=== PATIENT | female | born 1990 | race Caucasian/White ===

== ENCOUNTER 2017-05-14 23:52 | Emergency (ER) | payer SELFPAY ==
[~2017-05-14] VITALS: Ht 149.9 cm; Wt 61.1 kg
[2017-05-15 00:02] VITALS: BP 126/69; PULSE 115; RESP 18; TEMP 99.3; O2SAT 99
[2017-05-15 01:10] VITALS: O2SAT 97
--- NOTE | 2017-05-15 01:41 | PD ---
HPI Chief Complaint: GI Complaint Time Seen by Provider: 01:36 Travel History International Travel<30 days: No Contact w/Intl Traveler<30days: No Traveled to known affect area: No History of Present Illness HPI 26-year-old female presents to the emergency department for generalized weakness and feeling ill 1 week with fever 1 day with nausea vomiting urinary frequency suprapubic pressure and left flank pain. Patient has had previous appendectomy. Last menstrual period was 04/24/17 and normal for her and denies . Patient had no respiratory illness symptoms no sore throat no earache no cough no congestion no chest pain. Patient rates discomfort as moderate to severe. Patient had poor oral intake. Patient had mild constipation. No report of vaginal discharge or vaginal bleeding. PFSH Past Medical History Narrative Medical Appendectomy; tobacco use; nursing notes reviewed Medical History: Denies Significant Hx Tetanus Vaccination: > 5 Years Influenza Vaccination: No ?: Unknown LMP: 04/24/17 Past Surgical History Appendectomy: Yes Social History Alcohol Use: No Tobacco Use: Yes (one pack a day ) Substance Use: No (denies) Allergies-Medications (Allergen,Severity, Reaction): Coded Allergies: No Known Allergies (Unverified , 05/15/17) Reported Meds & Prescriptions Reported Meds & Active Scripts Active Phenergan (Promethazine HCl) 25 Mg Tablet 25 Mg PO Q6H PRN Cipro (Ciprofloxacin HCl) 500 Mg Tab 500 Mg PO BID 10 Days Review of Systems Except as stated in HPI: all other systems reviewed are Neg General / Constitutional: Positive: Fever, Chills HENT: Positive: Congestion Cardiovascular: No: Chest Pain or Discomfort Respiratory: No: Shortness of Breath Gastrointestinal: Positive: Nausea, Vomiting, Abdominal Pain, No: Diarrhea Genitourinary: Positive: Dysuria, Flank Pain Musculoskeletal: No: Myalgias, Arthralgias Skin: No Rash Psychiatric: No: Anxiety Hematologic/Lymphatic: No: Lymph Node Enlargement Physical Exam Narrative GENERAL: Well-developed well-nourished female in obvious discomfort with no respiratory distress SKIN: Warm and dry. HEAD: Normocephalic. EYES: No scleral icterus. No injection or drainage. NECK: Supple, trachea midline. No JVD or lymphadenopathy. CARDIOVASCULAR: Regular rate and rhythm without murmurs, gallops, or rubs. RESPIRATORY: Breath sounds equal bilaterally. No accessory muscle use. GASTROINTESTINAL: Abdomen soft, suprapubic tenderness to direct palpation without guarding or rebound, nondistended. MUSCULOSKELETAL: No cyanosis, or edema. BACK: Nontender without obvious deformity. Left CVA tenderness. Data Data Last Documented VS Vital Signs Date Time Temp Pulse Resp B/P (MAP) Pulse Ox O2 Delivery O2 Flow Rate FiO2 05/15/17 06:10 84 20 112/51 (71) 98 05/15/17 04:22 98.4 Room Air Orders Orders Sepsis Workup Initiated (05/15/17 ) Complete Blood Count With Diff (05/15/17 01:36) Comprehensive Metabolic Panel (05/15/17 01:36) Lactic Acid Sepsis Protocol (05/15/17 01:36) Magnesium (Mg) (05/15/17 01:36) Lipase (05/15/17 01:36) Urinalysis - C+S If Indicated (05/15/17 01:36) Influenzae A/B Antigen (05/15/17 01:36) Blood Culture (05/15/17 01:36) Chest, Single Ap (05/15/17 01:36) Blood Glucose (05/15/17 01:36) Ecg Monitoring (05/15/17 01:36) Iv Access Insert/Monitor (05/15/17 01:36) Oximetry (05/15/17 01:36) Oxygen Administration (05/15/17 01:36) Sodium Chlor 0.9% 1000 Ml Inj (Ns 1000 M (05/15/17 01:45) Ondansetron Inj (Zofran Inj) (05/15/17 01:45) Sodium Chlor 0.9% 1000 Ml Inj (Ns 1000 M (05/15/17 01:45) Piperacil-Tazo 4.5 Gm Premix (Zosyn 4.5 (05/15/17 01:45) Urine Culture (05/15/17 01:45) Ed Urine Pregnancytest Poc (05/15/17 05:49) Levofloxacin (Levaquin) (05/15/17 06:00) Ed Discharge Order (05/15/17 05:52) Labs Laboratory Tests Test 05/15/17 01:45 05/15/17 03:05 White Blood Count 17.8 TH/MM3 Red Blood Count 4.59 MIL/MM3 Hemoglobin 13.6 GM/DL Hematocrit 40.2 % Mean Corpuscular Volume 87.6 FL Mean Corpuscular Hemoglobin 29.6 PG Mean Corpuscular Hemoglobin Concent 33.8 % Red Cell Distribution Width 15.4 % Platelet Count 309 TH/MM3 Mean Platelet Volume 8.9 FL Neutrophils (%) (Auto) 80.7 % Lymphocytes (%) (Auto) 11.1 % Monocytes (%) (Auto) 7.4 % Eosinophils (%) (Auto) 0.4 % Basophils (%) (Auto) 0.4 % Neutrophils # (Auto) 14.3 TH/MM3 Lymphocytes # (Auto) 2.0 TH/MM3 Monocytes # (Auto) 1.3 TH/MM3 Eosinophils # (Auto) 0.1 TH/MM3 Basophils # (Auto) 0.1 TH/MM3 CBC Comment DIFF FINAL Differential Comment Urine Color YELLOW Urine Turbidity CLEAR Urine pH 5.5 Urine Specific [place] 1.015 Urine Protein TRACE mg/dL Urine Glucose (UA) NEG mg/dL Urine Ketones 15 mg/dL Urine Occult Blood NEG Urine Nitrite NEG Urine Bilirubin NEG Urine Urobilinogen 1.0 MG/DL Urine Leukocyte Esterase NEG Urine RBC 4-9 /hpf Urine WBC 9-14 /hpf Urine WBC Clumps FEW Urine Squamous Epithelial Cells 0-5 /hpf Urine Bacteria MANY /hpf Microscopic Urinalysis Comment CATH-CULTURE IND Blood Urea Nitrogen 10 MG/DL Creatinine 0.62 MG/DL Random Glucose 99 MG/DL Total Protein 8.4 GM/DL Albumin 3.5 GM/DL Calcium Level 8.9 MG/DL Magnesium Level 2.2 MG/DL Alkaline Phosphatase 114 U/L Aspartate Amino Transf (AST/SGOT) 37 U/L Alanine Aminotransferase (ALT/SGPT) 92 U/L Total Bilirubin 0.2 MG/DL Sodium Level 135 MEQ/L Potassium Level 3.8 MEQ/L Chloride Level 103 MEQ/L Carbon Dioxide Level 22.9 MEQ/L Anion Gap 9 MEQ/L Estimat Glomerular Filtration Rate 117 ML/MIN Lipase 83 U/L Lactic Acid Level 0.6 mmol/L MDM Medical Decision Making Medical Screen Exam Complete: Yes Emergency Medical Condition: Yes Medical Record Reviewed: Yes Interpretation(s) poc hcg: negative ua: Positive white blood cells bacteria culture indicate Last Impressions Chest X-Ray 05/15/17 0136 Signed Impressions: Service Date/Time: Monday, May 15, 2017 01:58 - CONCLUSION: Normal one view chest x-ray. Ankur Alexis MD CBC & BMP Diagram 05/15/17 01:45 Total Protein 8.4 H, Albumin 3.5, Calcium Level 8.9, Magnesium Level 2.2, Alkaline Phosphatase 114, Aspartate Amino Transf (AST/SGOT) 37, Alanine Aminotransferase (ALT/SGPT) 92 H, Total Bilirubin 0.2 Vital Signs Date Time Temp Pulse Resp B/P (MAP) Pulse Ox O2 Delivery O2 Flow Rate FiO2 05/15/17 06:10 84 20 112/51 (71) 98 05/15/17 04:22 98.4 95 18 93/52 (66) 97 Room Air 05/15/17 01:10 97 Room Air 05/15/17 01:10 97 Room Air 05/15/17 00:02 99.3 115 18 126/69 (88) 99 Differential Diagnosis Dysuria, UTI, pyelonephritis, sepsis Narrative Course Specimens collected and sent for resulting [id number] hCG negative; urinalysis positive for white blood cells and bacteria with culture indicated Patient administered first dose of antibiotic in the emergency department and is stable for outpatient management. Sepsis Criteria SIRS Criteria (2 or more): Heart rate over 90, WBC > 41137, < 4000 or > 10% bands Sepsis Criteria (SIRS+source): Infect source susp/known (urine) Diagnosis Primary Impression: UTI (urinary tract infection) Referrals: Primary Care Physician 2 days Patient Instructions: General Instructions Additional Instructions: Increase fluid hydration Take medication as prescribed for nausea vomiting Phenergan as needed please course of antibiotic as prescribed Take acetaminophen/Tylenol every 4 hours as needed for fever 100.4F or greater Take ibuprofen/Advil/Motrin 600 mg as often as every 6-8 hours as needed for fever 100.4F or greater Follow-up with your primary care provider No work 2 days Return to the emergency department for any concerns or change in condition Med/Other Pt SpecificInfo: Prescription(s) given Scripts Promethazine (Phenergan) 25 Mg Tablet 25 MG PO Q6H Y for NAUSEA OR VOMITING, #10 TAB 0 Refills Prov: Ivy Angulo MD 05/15/17 Ciprofloxacin (Cipro) 500 Mg Tab 500 MG PO BID for Infection for 10 Days, #20 TAB 0 Refills Prov: Ivy Angulo MD 05/15/17 Disposition: 01 DISCHARGE HOME Condition: Stable Ivy Angulo MD May 15, 2017 01:41
[2017-05-15] MEDS ORDERED: PIPERACIL-TAZO 4.5 GM PREMIX 100 ML IV ONE (01:45)
[2017-05-15] MEDS ORDERED: SODIUM CHLOR 0.9% 1000 ML INJ 1,000 ML IV ONE ×2 (01:45)
[2017-05-15] MEDS ORDERED: ONDANSETRON HCL 4 MG/2 ML VIAL IV PUSH ONE (01:45)
--- NOTE | 2017-05-15 03:11 | RADRPT ---
EXAM DATE/TIME: 05/15/2017 01:58 [facility] COMPARISON: No previous studies available for comparison. INDICATIONS : Fever. MEDICAL HISTORY : None. SURGICAL HISTORY : None. ENCOUNTER: Initial ACUITY: 1 day PAIN SCORE: 3/10 LOCATION: Bilateral chest FINDINGS: A single view of the chest demonstrates the lungs to be symmetrically aerated without evidence of mas s, infiltrate or effusion. The cardiomediastinal contours are unremarkable. Osseous structures are intact. CONCLUSION: Normal one view chest x-ray. Ankur Alexis MD on May 15, 2017 at 3:09 Board Certified Radiologist. This report was verified electronically.
[2017-05-15 03:22] LABS: BILIRUBIN, URINE NEG (NEG); BLOOD, URINE NEG (NEG); GLUCOSE,URINE NEG (NEG); KETONE, URINE 15 mg/dL (NEG); NITRITE,URINE NEG (NEG); PH, URINE 5.5 (5.0-8.5); URINE COLOR YELLOW (YELLW/STRAW); URINE LEUKOCYTE ESTERASE NEG (NEG)
[2017-05-15 03:23] LABS: AUTOMATED NEUTROPHIL # 14.3 TH/MM3 (1.8-7.7); BASOPHIL # 0.1 TH/MM3 (0-0.2); BASOPHIL % 0.4 % (0.0-2.0); EOSINOPHIL # 0.1 TH/MM3 (0-0.4); EOSINOPHIL % 0.4 % (0.0-4.0); HEMATOCRIT 40.2 % (35.0-46.0); HEMOGLOBIN 13.6 GM/DL (11.6-15.3); LYMPH % 11.1 % (9.0-44.0); MEAN CELL VOLUME 87.6 FL (80.0-100.0); MEAN CORPUSCULAR HEMOGLOBIN 29.6 PG (27.0-34.0); MEAN CORPUSCULAR HGB CONC 33.8 % (32.0-36.0); MEAN PLATELET VOLUME 8.9 FL (7.0-11.0); MONO % 7.4 % (0.0-8.0); MONOCYTE # 1.3 TH/MM3 (0-0.9); NEUT % 80.7 % (16.0-70.0); PLATELET COUNT 309 TH/MM3 (150-450); RED BLOOD COUNT 4.59 MIL/MM3 (4.00-5.30); RED CELL DISTRIBUTION WIDTH 15.4 % (11.6-17.2); WHITE BLOOD COUNT 17.8 TH/MM3 (4.0-11.0)
[2017-05-15 03:31] LABS: CHLORIDE 103 MEQ/L (98-107); SODIUM (NA) 135 MEQ/L (136-145)
[2017-05-15 03:34] LABS: ALBUMIN 3.5 GM/DL (3.4-5.0); BICARBONATE 22.9 MEQ/L (21.0-32.0); CALCIUM 8.9 MG/DL (8.5-10.1); GLUCOSE,RANDOM 99 MG/DL (74-106); MAGNESIUM 2.2 MG/DL (1.5-2.5)
[2017-05-15 03:35] LABS: BLOOD UREA NITROGEN 10 MG/DL (7-18)
[2017-05-15 03:37] LABS: ALT (GPT) 92 U/L (10-53); AST (GOT) 37 U/L (15-37); CREATININE 0.62 MG/DL (0.50-1.00); GLOMERULAR FILTRATION RATE 117 ML/MIN (>89)
[2017-05-15 03:39] LABS: TOTAL BILIRUBIN ADULT 0.2 MG/DL (0.2-1.0); TOTAL PROTEIN 8.4 GM/DL (6.4-8.2)
[2017-05-15 03:40] LABS: ALKALINE PHOSPHATASE 114 U/L (45-117)
[2017-05-15 04:10] LABS: BACTERIA, URINE MANY /hpf; SQUAMOUS EPITHELIAL CELL URINE 0-5 /hpf (0-5); WHITE BLOOD CELL CLUMPS FEW
[2017-05-15 04:22] VITALS: BP 93/52; PULSE 95; RESP 18; TEMP 98.4; O2SAT 97
[2017-05-15] MEDS ORDERED: CIPR-9 PO (05:51)
[2017-05-15] MEDS ORDERED: PROM25TA10 PO (05:51)
[2017-05-15] MEDS ORDERED: LEVOFLOXACIN 500 MG TAB PO ONE (06:00)
[2017-05-15 06:10] VITALS: BP 112/51
== END 2017-05-15 06:15 | disposition home or self-care (01) ==
LOC: PHED 23:52
DX: N39.0 Urinary tract infection, site not specified (principal); R53.1 Weakness; R50.9 Fever, unspecified; R11.2 Nausea with vomiting, unspecified; K59.00 Constipation, unspecified; B96.20 Unspecified Escherichia coli [E. coli] as the cause of diseases classified elsewhere; F17.200 Nicotine dependence, unspecified, uncomplicated
CPT/HCPCS: 71045; 80053; 81001; 83605; 83690; 83735; 84703; 85025; 87040; 87077; 87086; 87186; 87804; 96361; 96365; 96375; 99284; J2405; J2543; J7030